=== PATIENT | male | born 1980 | race Caucasian/White ===

== ENCOUNTER 2022-02-17 09:58 | Emergency (ER) | payer OTHER, SELFPAY ==
[2022-02-17] VITALS (11 sets, daily range): BP systolic 139; BP diastolic 83; PULSE 61–76; RESP 15–28; O2SAT 96–98
--- NOTE | ~2022-02-17 | XR_ITS ---
XR chest 2V DATE: 02/17/2022 10:37 INDICATION: Left-sided chest pain radiating to left neck TECHNIQUE: PA and lateral views COMPARISON: None FINDINGS: Heart size is within normal limits. No hilar or mediastinal enlargement. No pulmonary infil trate or consolidation, pleural effusion or pulmonary vascular congestion or pneumothorax. Included s keletal structures are unremarkable. IMPRESSION: No active cardiopulmonary disease Reviewed, dictated and finalized at location A.
--- NOTE | 2022-02-17 10:15 | ECG_ITS ---
Measurements Intervals [place] Rate: 69 P: 24 SD: 142 QRS: 84 QRSD: 98 T: 39 QT: 335 QTc: 361 Interpretive Statements SINUS RHYTHM DELAYED PRECORDIAL R/S TRANSITION BORDERLINE ECG Electronically Signed On 02-17-2022 10:21:25 CDT by Tree Westbrook D.O.
--- NOTE | 2022-02-17 10:18 | ED.CHESTPAIN ---
HPI - Chest Pain General Chief Complaint: Chest Pain Stated Complaint: shooting pains in carotid artery Time Seen by Provider: 02/17/22 10:07 Source: patient History of Present Illness HPI narrative: Patient presents with chest pain. Patient symptoms started around 9:00 while he is working outside. He bent over and felt a dull sensation in his left chest rating up to his left neck. Reports overall his symptoms have improved but he continues to have some left neck pain, there is no clear aggravating or alleviating factors Reports he had symptoms like this before but is not previously been evaluated for it today seem more intense that he came to the ER. Does report mild association with shortness of breath denies any diaphoresis nausea vomiting or diarrhea. Denies any significant family cardiac history denies any recent hospitalizations surgeries denies prior history of blood clots. Related Data Home Medications Medication Instructions Recorded Confirmed atorvastatin 20 mg tablet 1 tablet 02/17/22 Allergies Allergy/AdvReac Type Severity Reaction Status Date / Time No Known Allergies Allergy Unverified 02/17/22 10:22 Review of Systems Review of Systems: CONSTITUTIONAL: Denies fever, chills, or sweats. EYES: Denies visual changes, redness, or discharge. ENT: Denies rhinorrhea, congestion, sore throat, or otalgia. CARDIOVASCULAR: Denies palpitations, or edema. RESPIRATORY: Reports shortness of breath GASTROINTESTINAL: Denies abdominal pain, nausea, vomiting, or diarrhea. GENITOURINARY: Denies dysuria or hematuria. SKIN: Denies rash or itching. MUSCULOSKELETAL: Denies back pain, joint pain, or myalgia. NEUROLOGIC: Denies headache, numbness, dizziness, or weakness. PSYCHIATRIC: Denies anxiety or depression. All systems reviewed & are unremarkable except as noted in HPI and below PMFSH Past Medical History Medical History (Updated 02/17/22 @ 14:01 by Bang Remy MD) Elevated cholesterol Social History Social History (Updated 02/17/22 @ 10:28 by Bang Remy MD) Smoking status: Current every day smoker Alcohol intake: current Substance use: current Substance use type: other Other substance usage details: THC edibles Exam Narrative: GENERAL: Well-appearing, well-nourished, and in no acute distress. HEAD: Normocephalic, atraumatic. EYES: PERRLA and EOMI. ENT: Nares clear, no rhinorrhea or epistaxis. Mucous membranes moist. NECK: Supple. No masses. No JVD CHEST: Clear to auscultation. No respiratory distress. No wheezes rales or rhonchi HEART: Regular rate and rhythm. No murmur heard. Normal peripheral pulses. ABDOMEN: Soft, nontender, nondistended EXTREMITIES: Normal range of motion. No edema. SKIN: Warm, dry, no rash. NEURO: No focal deficits. Alert and oriented x3. PSYCH: Normal mood and affect. Course Reevaluation(s) Reevaluation #1: Patient is resting comfortably continues to have much improved symptoms work-up reviewed with patient. Patient is comfortable with outpatient plan. Date: 02/17/22 Time: 13:58 Vital Signs Vital signs: Vital Signs Pulse Rate 74 02/17/22 10:15 Respiratory Rate 16 02/17/22 10:15 Blood Pressure 139/83 02/17/22 10:15 Pulse Oximetry 96 02/17/22 10:15 Oxygen Delivery Room Air 02/17/22 10:15 Pulse Rate 69 02/17/22 14:00 Respiratory Rate 28 H 02/17/22 14:00 Blood Pressure 139/83 02/17/22 10:15 Pulse Oximetry 97 02/17/22 13:56 Oxygen Delivery Room Air 02/17/22 10:30 MDM - Chest Pain MDM Narrative Medical decision making narrative: H&P as above, vss, pt looks clinically well, exam clear lungs, labs with mild elevation in creatinine otherwise labs are clinically unremarkable to include a delta troponin, img without acute process, additional labs/img considered, symptomatic relief available as needed, on reevaluation pt continues to looks clinically well. Chest pain remains of unclear etiology elevated creati
[2022-02-17 10:32] LABS: Basophils Absolute Auto 0.1 K/mm3 (0.0-0.1); Basophils Percent Auto 0.7 % (0.2-1.2); Eosinophils Absolute Auto 0.3 K/mm3 (0-0.3); Eosinophils Percent Auto 2.4 % (0-4.4); Hematocrit 48.5 % (42.0-52.0); Immature Granulocyte Absolute 0.07 K/mm3 (0.00-0.031); Immature Granulocyte Percent A 0.6 % (0-0.5); Lymphocytes Absolute Auto 3.03 K/mm3 (0.9-3.2); Lymphocytes Percent Auto 25.5 % (18.3-44.2); Mean Corpuscular Hemoglobin 30.2 pg (26-34); Mean Corpuscular Volume 91.7 fl (80-100); Mean Platelet Volume 9.8 fl (7.4-10.4); Monocytes Absolute Auto 1.2 K/mm3 (0.1-0.6); Monocytes Percent Auto 9.9 % (2.6-8.5); Neutrophils Absolute Auto 7.2 K/mm3 (1.3-6.7); Neutrophils Percent Auto 60.9 % (45.5-73.1); Platelet Count Result 216 k/mm3 (150-375); Red Blood Count 5.29 M/mm3 (4.6-6.20); Red Cell Distribution Width 13.2 % (11.5-14.5); White Blood Count 11.9 K/mm3 (4.5-10.0)
[2022-02-17 10:39] LABS: Alanine Aminotransferase 36 U/L (6-50); Alkaline Phosphatase 70 U/L (38-126); Anion Gap 5 mmol/L (8-16); Aspartate Amino Transferase 29 U/L (17-59); Bilirubin,Total 0.4 mg/dL (0.2-1.3); Blood Urea Nitrogen 22 mg/dL (9-20); Calcium 9.1 mg/dL (8.4-10.2); Carbon Dioxide 29 mmol/L (22-30); Chloride 106 mmol/L (98-107); Estimated CRCL calculation 64 ml/min; Estimated Glomerular Filt Rate 47; Glucose 91 mg/dL (65-110); Potassium 4.4 mmol/L (3.4-5.0); Sodium 140 mmol/L (137-145)
[2022-02-17 10:51] LABS: Troponin I < 0.012 ng/mL (0.000-0.034)
[2022-02-17 13:41] LABS: Troponin I < 0.012 ng/mL (0.000-0.034)
== END 2022-02-17 14:30 | disposition home or self-care (01) ==
PROVIDERS: Emergency Provider Emergency Medicine; PCP Internal Medicine
DX: R07.9 Chest pain, unspecified (principal); E78.00 Pure hypercholesterolemia, unspecified; F17.210 Nicotine dependence, cigarettes, uncomplicated
CPT/HCPCS: 36415; 71046; 80053; 84484; 85025; 93005; 99284

== ENCOUNTER → 2022-03-02 08:31 | Outpatient (CLI) | payer OTHER, SELFPAY ==
--- NOTE | ~2022-03-02 | CT_ITS ---
EXAMINATION:CT diagnostic chest wo con DATE: 03/02/2022 08:51 INDICATION: Chest pain. TECHNIQUE: Computed tomography (CT) of the chest was performed without intravenous contrast. Automate d exposure control and iterative reconstruction technique were employed. The dose-length product (DLP ) was 490.98 mGy-cm. COMPARISON: Chest 2 views 02/17/2022 FINDINGS: There is mild emphysema. No pleural effusion. The heart size is normal. No pericardial effu seth. There is mild thoracic spondylosis. IMPRESSION: 1. Mild emphysema. Reviewed, dictated and finalized at location A. IMPRESSION: 1. Mild emphysema.
== END ==
PROVIDERS: PCP Internal Medicine; Visit Provider Internal Medicine
DX: R07.9 Chest pain, unspecified (principal); J43.9 Emphysema, unspecified
CPT/HCPCS: 71250

== ENCOUNTER 2022-03-22 13:24 | Outpatient (CLI) | payer OTHER, SELFPAY ==
--- NOTE | 2022-03-24 14:54 | WPDPFTINT ---
PFT Procedure Performed PFT Procedure Performed Plethysmography (Lung Vol) Diffusing Cap (DLCO) Flow Vol Loop Spirometry w/o Bronchodil PFT Interpretation Lung volumes were measured with the body plethysmography method. Lung volumes are unremarkable. Spirometry showed normal expiratory flow rates and a normal FEV1 to FVC ratio of 84. No post bronchodilator study was carried out. Lung diffusion capacity is within the normal range at 91% predicted. The flow volume loop is unremarkable. Impression: Spirometry, lung volumes, and lung diffusion capacity all within the normal range.
== END 2022-03-22 13:25 | disposition home or self-care (01) ==
PROVIDERS: PCP Internal Medicine; Visit Provider Internal Medicine
DX: J43.9 Emphysema, unspecified (principal)
CPT/HCPCS: 94375; 94726; 94729

== ENCOUNTER 2022-12-03 08:20 | Emergency (ER) | payer OTHER, SELFPAY ==
--- NOTE | 2022-12-03 08:24 | ED.SKABFB ---
HPI - Skin/Abscess/Foreign Bdy General Chief complaint: Skin/Abscess/Foreign Body Stated complaint: line rashes throughout body Time Seen by Provider: 12/03/22 08:35 Source: patient, RN notes reviewed and old records reviewed Mode of arrival: ambulatory Limitations: no limitations History of Present Illness HPI narrative: 42-year-old male presents to the [facility] with complaints of a rash. states 9 days ago he was doing yd work. The day after he noticed the rash developing. Had been on a car ride and noticed the posterior knees red warm areas. Had been applying some left over triamcinolone complaint: rash Related Data Home Medications Medication Instructions Recorded Confirmed atorvastatin 20 mg tablet 20 mg PO DAILY 04/29/22 12/03/22 testosterone cypionate 200 mg/mL 200 mg IM .[id number] 04/29/22 12/03/22 intramuscular oil Allergies Allergy/AdvReac Type Severity Reaction Status Date / Time No Known Allergies Allergy Unverified 12/03/22 08:35 Review of Systems Review of Systems: All systems reviewed & are unremarkable except as noted in HPI and below Constitutional: Constitutional: Reports no additional constitutional complaints Eyes: Eyes: Reports no additional eye complaints ENT: Reports system reviewed and no additional complaints, except as documented Cardiovascular: Cardiovascular: Reports no additional cardiovascular complaints, Denies chest pain and Denies dyspnea Respiratory: Respiratory: Reports no additional respiratory complaints, Denies chest congestion, Denies cough and Denies dyspnea Gastrointestinal: Gastrointestinal: Reports no additional gastrointestinal complaints, Denies abdominal pain, Denies nausea and Denies vomiting Musculoskeletal: Musculoskeletal: Reports no additional musculoskeletal complaints Integumentary/Breasts: Skin/Breast: Reports as per HPI and Reports rash Neurologic: Reports system reviewed and no additional complaints, except as documented Psychiatric: Psychiatric: Reports no additional psychiatric complaints Allergic/Immunologic: Allergic/Immunologic: Reports no additional allergic/immunologic complaints PMF Past Medical History Medical History Broken finger Ring finger on right hand Elevated cholesterol Family History Family History Mother Carcinoma of colon Diabetes mellitus Hypertension Depression Cerebrovascular accident Grandparent Hypertension Depression Heart disease Social History Social History Smoking packs per day: 0.5 Smoking cigarettes per day: 10.0 Smoking status: Current every day smoker Alcohol intake: current Substance use: current Substance use type: other Other substance usage details: THC edibles Comments At the time of my signature, I reviewed and agree with the nursing past medical, surgical, social, and family history. There is no relevant family history pertinent to the patient complaint. Exam Const: General: cooperative, healthy appearing, comfortable, no acute distress, well developed, alert and well nourished Nutritional Appearance: well nourished Orientation/consciousness: patient oriented x3 Limitations: no limitations HENMT: Head: normal to inspection Ears: hearing grossly normal bilaterally and external ears normal Face/Nose/Sinus: Normal external nose present, Normal nares present, Normal nasal mucous membranes and turbinates present and normal facial exam Face and sinus: normal facial exam Mouth: Yes Normal oral and palatal mucosa present, Yes lip normal and Yes moist mucous membranes Throat: posterior oropharynx normal and uvula midline Eyes: General: appearance normal, both eyes and all related structures Alignment and Position: alignment normal Periorbital: periorbital findings normal Conjunctivae: conjunctivae mikey
[2022-12-03 08:34] VITALS: BP 148/91; PULSE 75; RESP 16; TEMP 36.6; O2SAT 100
== END 2022-12-03 08:49 | disposition home or self-care (01) ==
PROVIDERS: Emergency Provider Nurse Practitioner
DX: L03.116 Cellulitis of left lower limb (principal); L03.115 Cellulitis of right lower limb; L25.5 Unspecified contact dermatitis due to plants, except food; E78.00 Pure hypercholesterolemia, unspecified; F17.210 Nicotine dependence, cigarettes, uncomplicated
CPT/HCPCS: 99213; G0463

== ENCOUNTER 2024-01-27 08:58 | Emergency (ER) | payer OTHER, SELFPAY ==
[2024-01-27 09:16] VITALS: BP 131/82; PULSE 87; RESP 16; TEMP 36.8; O2SAT 98
--- NOTE | 2024-01-27 09:50 | ED.ABDPAIN ---
HPI - Abdominal Pain General Chief Complaint: Abdominal Pain Stated Complaint: lower stomach issues Time Seen by Provider: 01/27/24 09:38 Source: patient, family () and RN notes reviewed Mode of arrival: ambulatory Limitations: no limitations History of Present Illness HPI narrative: Patient presents today with a one-week history of lower abdominal discomfort. He describes his pain as constant gas pains , feeling empty or hungry down there . Denies nausea, vomiting, diarrhea, fever. States he has some firm stools and some looser stools during this week without blood or mucus. He rates his discomfort 5/10 and has tried no [id number] treatment prior to arrival. Denies any GI history. Denies urinary symptoms. Related Data Allergies Allergy/AdvReac Type Severity Reaction Status Date / Time No Known Allergies Allergy Verified 01/27/24 09:06 Review of Systems Review of Systems: CONSTITUTIONAL: Denies body aches, fever, chills, or sweats. EYES: Denies visual changes, redness, or discharge. ENT: Denies rhinorrhea, congestion, sore throat, or otalgia. CARDIOVASCULAR: Denies chest pain, palpitations, or edema. RESPIRATORY: Denies cough or dyspnea. GASTROINTESTINAL: Denies nausea, vomiting, or diarrhea.+ abdominal discomfort GENITOURINARY: Denies dysuria or hematuria. SKIN: Denies rash, itching, or wounds. MUSCULOSKELETAL: Denies back pain, joint pain, or myalgia. NEUROLOGIC: Denies headache, numbness, tingling, or weakness. PSYCH: Denies depression or anxiety. [facility] Past Medical History Medical History Broken finger Ring finger on right hand Elevated cholesterol Family History Family History Mother Carcinoma of colon Diabetes mellitus Hypertension Depression Cerebrovascular accident Grandparent Hypertension Depression Heart disease Social History Social History Smoking packs per day: 0.5 Smoking cigarettes per day: 10.0 Smoking status: Current every day smoker Alcohol intake: current Substance use: current Substance use type: other Other substance usage details: THC edibles Comments At time of signature, I have reviewed and agree with nursing past medical, surgical, social and family history unless otherwise noted. Please see nursing chart for further information. There is no relevant family history pertinent to the presenting complaint Exam Narrative: GENERAL: Well-appearing, well-nourished, and in no acute distress. HEAD: Normocephalic, atraumatic. EYES: EOMI. No redness or drainage. Conjunctivae normal. ENT: Mucous membranes pink and moist. NECK: Normal AROM. CHEST: No respiratory distress. Clear to auscultation. HEART: Regular rate and rhythm. No murmur appreciated. Normal peripheral pulses. ABDOMEN: Soft, nontender, nondistended, normal active bowel sounds. EXTREMITIES: Normal range of motion. No edema. SKIN: Warm, dry, no rash. Capillary refill normal. Normal skin turgor. NEURO: No focal deficits. Alert and oriented x3. Gait steady. PSYCH: Normal affect. No signs of depression or anxiety. Course Course Level of Care: Express Care Visit Vital Signs Vital signs: Vital Signs Temperature 98.2 F 01/27/24 09:16 Pulse Rate 87 01/27/24 09:16 Respiratory Rate 16 01/27/24 09:16 Blood Pressure 131/82 01/27/24 09:16 Pulse Oximetry 98 01/27/24 09:16 Oxygen Delivery Room Air 01/27/24 09:16 Temperature 98.2 F 01/27/24 09:16 Pulse Rate 87 01/27/24 09:16 Respiratory Rate 16 01/27/24 09:16 Blood Pressure 131/82 01/27/24 09:16 Pulse Oximetry 98 01/27/24 09:16 Oxygen Delivery Room Air 01/27/24 09:16 Reviewed MDM - Abdominal Pain MDM Narrative Medical decision making narrative: Urinalysis is negative. No need for culture. G
== END 2024-01-27 10:21 | disposition home or self-care (01) ==
PROVIDERS: Emergency Provider Nurse Practitioner
DX: R10.30 Lower abdominal pain, unspecified (principal); F17.210 Nicotine dependence, cigarettes, uncomplicated; F12.90 Cannabis use, unspecified, uncomplicated; E78.00 Pure hypercholesterolemia, unspecified
CPT/HCPCS: 81003; 99213; G0463

== ENCOUNTER 2024-02-08 10:45 | Outpatient (CLI) | payer OTHER, SELFPAY ==
--- NOTE | ~2024-02-08 | CT_ITS ---
EXAMINATION: CT abdomen pelvis w con DATE: 02/08/2024 11:35 INDICATION: Lower abdominal pain TECHNIQUE: Computed tomography (CT) of the abdomen and pelvis was performed with 100 mL Omnipaque-350 intravenous contrast. Automated exposure control and iterative reconstruction technique were employe d. The dose-length product was 1047.36 mGy-cm. COMPARISON: None FINDINGS: Lung bases are clear. Heart size is normal. No pericardial or pleural effusion. Liver, gallbladder, s pleen, pancreas, bilateral adrenal glands and right kidney are normal. There is diffuse mild left umer al atrophy. Bowels including the appendix are normal. Bladder is normal. Mild prostatomegaly measurin g 4.3 x 3.7 cm. No free intraperitoneal gas or fluid. No pathologically enlarged abdominal or pelvic lymphadenopathy. Bones are unremarkable. IMPRESSION: 1. Asymmetric mild left renal atrophy. Otherwise unremarkable CT abdomen pelvis with no acute intra-a bdominal/pelvic process. Reviewed, dictated and finalized at location B. IMPRESSION: 1. Asymmetric mild left renal atrophy. Otherwise unremarkable CT abdomen pelvis with no acute intra-abdominal/pelvic process.
== END 2024-02-08 10:46 ==
PROVIDERS: PCP Emergency Medicine; Visit Provider Emergency Medicine
DX: R10.30 Lower abdominal pain, unspecified (principal)
CPT/HCPCS: 74177; Q9967